=== PATIENT | female | born 2000 | race Caucasian/White ===

== ENCOUNTER 2020-02-25 04:01 | Outpatient (CLI) | payer OTHER, MEDICAID, SELFPAY ==
[2020-02-26 02:13] LABS: COVID-19 RT-PCR UVMMC Result Negative (Negative)
== END 2020-02-25 04:21 ==
PROVIDERS: PCP Nurse Practitioner Family; Visit Provider Nurse Practitioner Family
DX: Z20.828 Contact with and (suspected) exposure to other viral communicable diseases (principal); Z02.0 Encounter for examination for admission to educational institution
CPT/HCPCS: U0003

== ENCOUNTER 2020-08-09 14:46 | Outpatient (REF) | payer OTHER, MEDICAID, SELFPAY ==
--- NOTE | 2020-08-09 13:40 | PAPFT_PTH ---
PATIENT: Ciara Hercules LOC: [facility] U#:[id number] AGE/SX: 20/F ROOM: RE08/09/[address]: ALISTAIR Lopez : 2000 BED: DIS: 08/09/2020 SPEC #: [id number] RECD: 08/09/20 18:11 STATUS: MAYNOR TORIBIO #: [id number] PAPO: 08/09/20 13:[address]: Macy Meek DEPT: [facility] Cytology RECD BY: Gaviota Styles Tissues: 1 - CX/ENDOCX FOR PAP SMEARS Procedures: PAP THIN PREP/[facility] Screening Comments: [id number] (CHLAMYDIA/GC)
[2020-08-10 14:17] LABS: Chlamydia Result Negative (Negative); GC Result Negative (Negative)
== END 2020-08-09 14:47 | disposition home or self-care (01) ==
LOC: LBN 14:46
PROVIDERS: PCP Nurse Practitioner Family; Visit Provider Nurse Practitioner Family
DX: Z12.4 Encounter for screening for malignant neoplasm of cervix (principal); Z11.3 Encounter for screening for infections with a predominantly sexual mode of transmission
CPT/HCPCS: 87491; 87591; 88142

== ENCOUNTER 2020-09-13 16:07 | Outpatient (CLI) | payer MEDICAID, SELFPAY ==
[2020-09-13 12:41] LABS: Anion Gap 2.6 mmol/L (3-11); BUN 9 mg/dL (7-18); CO2 27.4 mmol/L (21.0-32.0); CREATININE 0.6 mg/dL (0.55-1.02); Calcium 9.2 mg/dL (8.5-10.1); Calculated LDL 158 mg/dL (<100); Chloride 105 mmol/L (98-107); Cholesterol 221 mg/dL (<200); Glucose 79 mg/dL (74-106); HDL Cholesterol 42 mg/dL (40-60); Potassium 3.9 mmol/L (3.5-5.1); Sodium 135 mmol/L (136-145); Triglyceride 107 mg/dL (<150)
[2020-09-13 13:16] LABS: Hemoglobin A1C 5.7 % (<5.7)
== END 2020-09-13 16:08 | disposition home or self-care (01) ==
LOC: LOS 16:08
PROVIDERS: PCP Nurse Practitioner Family; Visit Provider Nurse Practitioner Family
DX: Z13.228 Encounter for screening for other metabolic disorders (principal); Z13.220 Encounter for screening for lipoid disorders; Z13.1 Encounter for screening for diabetes mellitus; Z00.00 Encounter for general adult medical examination without abnormal findings
CPT/HCPCS: 36415; 80048; 80061; 83036

== ENCOUNTER 2021-03-02 11:00 | Outpatient (CLI) | payer OTHER, MEDICAID, SELFPAY ==
[2021-03-02 12:04] LABS: HCG Quant, Pregnancy 2812 mIU/mL (1-3)
== END 2021-03-02 11:01 | disposition home or self-care (01) ==
LOC: LBO 11:01
PROVIDERS: PCP Nurse Practitioner Family; Visit Provider Obstetrics & Gynecology
DX: O26.851 Spotting complicating pregnancy, first trimester (principal)
CPT/HCPCS: 84702

== ENCOUNTER 2021-03-04 04:36 | Outpatient (CLI) | payer OTHER, MEDICAID, SELFPAY ==
[2021-03-04 12:11] LABS: HCG Quant, Pregnancy 2074 mIU/mL (1-3)
== END 2021-03-04 04:37 | disposition home or self-care (01) ==
PROVIDERS: PCP Nurse Practitioner Family; Visit Provider Obstetrics & Gynecology
DX: O20.9 Hemorrhage in early pregnancy, unspecified
CPT/HCPCS: 36415; 86850; 86900; 86901; 84702

== ENCOUNTER 2021-03-11 01:47 | Outpatient (CLI) | payer OTHER, MEDICAID, SELFPAY ==
[2021-03-11 10:37] LABS: HCG Quant, Pregnancy 53 mIU/mL (1-3)
== END 2021-03-11 01:48 | disposition home or self-care (01) ==
LOC: LBO 01:47
PROVIDERS: PCP Nurse Practitioner Family; Visit Provider Obstetrics & Gynecology
DX: O03.9 Complete or unspecified spontaneous abortion without complication (principal)
CPT/HCPCS: 36415; 84702

== ENCOUNTER 2021-03-25 01:46 | Outpatient (CLI) | payer OTHER, MEDICAID, SELFPAY ==
[2021-03-25 13:35] LABS: HCG Quant, Pregnancy 2 mIU/mL (1-3)
== END 2021-03-25 01:47 | disposition home or self-care (01) ==
LOC: LBO 01:46
PROVIDERS: Obstetrics & Gynecology Gynecology; PCP Nurse Practitioner Family; Visit Provider Obstetrics & Gynecology
DX: O03.9 Complete or unspecified spontaneous abortion without complication (principal)
CPT/HCPCS: 36415; 84702

== ENCOUNTER 2023-01-02 01:59 | Outpatient (CLI) | payer MEDICAID, SELFPAY ==
[2023-01-02 09:29] LABS: Hemoglobin A1C 5.5 % (<5.7)
[2023-01-02 09:37] LABS: BUN 15 mg/dL (7-18); CREATININE 0.7 mg/dL (0.55-1.02); Calcium 9.6 mg/dL (8.5-10.1); Calculated LDL 167 mg/dL (<100); Chloride 101 mmol/L (98-107); Cholesterol 234 mg/dL (<200); Estimated GFR 124.55 (mL/min/1.73m2); Glucose 102 mg/dL (74-106); HDL Cholesterol 43 mg/dL (40-60); Potassium 3.7 mmol/L (3.5-5.1); Sodium 138 mmol/L (136-145); Triglyceride 123 mg/dL (<150)
== END 2023-01-02 02:00 | disposition home or self-care (01) ==
LOC: LBO 01:59
PROVIDERS: PCP Nurse Practitioner Family; Visit Provider Nurse Practitioner Family
DX: Z00.00 Encounter for general adult medical examination without abnormal findings (principal)
CPT/HCPCS: 36415; 80048; 80061; 83036; 84439; 84443

== ENCOUNTER 2023-05-15 13:23 | Outpatient (CLI) | payer MEDICAID, SELFPAY | END 2023-05-15 13:24 | disposition home or self-care (01) | LOC: LBO 13:24 | PROVIDERS: PCP Nurse Practitioner Family; Visit Provider Nurse Practitioner Family | DX: R79.89 Other specified abnormal findings of blood chemistry (principal) | CPT/HCPCS: 36415; 84443 ==

== ENCOUNTER → 2023-06-13 02:24 | Outpatient (CLI) | payer MEDICAID, SELFPAY ==
--- NOTE | 2023-06-13 07:30 | DI.CT_ITS ---
Exam(s) CT HEAD WO EXAM: CT HEAD WO CLINICAL HISTORY: headaches, multiple concussions,g43.909,F07.81. TECHNIQUE: Imaging Protocol: Axial computed tomography images with coronal and sagittal reformatted images were created and reviewed COMPARISON: No exams were available for comparison FINDINGS: There are no skull fractures. There is no fluid in the visualized paranasal sinuses. There is no evidence of intracranial hemorrhage, mass effect, or shift of midline structures. There are no extra-axial fluid collections. The ventricles are not enlarged or shifted and there is no blo od within the ventricular system nor within the basal cisterns. Orbits: There appears to be an element of bilateral proptosis IMPRESSION: No acute intracranial findings on this noninfused CT scan of the brain. Bilateral proptosis RADIATION DOSE DELIVERED: 973.07mGy.cm Total DLP DATA REPOSITORY: All CT scans at this facility are submitted to the National Radiology Data Registry (NRDR) Dose Index Registry (DIR) with the [employer] ([employer]). RADIATION OPTIMIZATION: All CT scans at this facility use at least one of these dose optimization te chniques: automated exposure control; mA and/or kV adjustment per patient size (includes targeted exa ms where dose is matched to clinical indication); or iterative reconstruction.
== END ==
PROVIDERS: PCP Nurse Practitioner Family; Visit Provider Nurse Practitioner Family
DX: G43.909 Migraine, unspecified, not intractable, without status migrainosus (principal); F07.81 Postconcussional syndrome
CPT/HCPCS: 70450

== ENCOUNTER 2023-06-13 16:36 | Outpatient (CLI) | payer MEDICAID, SELFPAY ==
[2023-06-13 15:11] LABS: Abs Immature Grans 0.03 10^3/uL (0.0-0.06); Absolute Basophil Count 0.06 10^3/uL (0.0-0.2); Absolute Eosinophil Count 0.08 10^3/uL (0.0-0.7); Absolute Lymphocyte Count 2.28 10^3/uL (1.2-3.4); Absolute Monocyte Count 0.44 10^3/uL (0.1-0.8); Absolute Neutrophil Count 5.78 10^3/uL (1.2-6.7); Basophils % 0.7; Eosinophils % 0.9; HCT 42.1 % (36.0-46.0); HGB 13.9 g/dL (11.2-15.7); Immature Grans % 0.3; Lymphocytes % 26.3; MCH 27.6 pg (27.0-33.0); MCV 84 fL (80-95); MPV 11.8 fL (8.0-11.0); Monocytes % 5.1; Neutrophils % 66.7; Platelet Count 260 10^3/uL (130-400); RBC 5.03 10^6/uL (3.93-5.22); RDW 13.1 % (11.7-14.6); RDW-SD 39.8 fL; WBC 8.67 10^3/uL (4.4-10.8)
== END 2023-06-13 16:37 | disposition home or self-care (01) ==
LOC: LBO 16:36
PROVIDERS: PCP Nurse Practitioner Family; Visit Provider Nurse Practitioner Family
DX: G43.909 Migraine, unspecified, not intractable, without status migrainosus (principal)
CPT/HCPCS: 36415; 85025

== ENCOUNTER 2023-08-29 12:39 | Outpatient (REF) | payer MEDICAID, SELFPAY ==
--- NOTE | 2023-08-29 11:30 | PAPFT_PTH ---
PATIENT: Ciara Hercules LOC: [facility] U#:[id number] AGE/SX: 23/F ROOM: RE08/29/[address]: ALISTAIR Lopez : 2000 BED: DIS: 08/29/2023 SPEC #: [id number] RECD: 08/30/23 12:24 STATUS: MAYNOR TORIBIO #: [id number] PAPO: 08/29/23 11:[address]: Macy Meek DEPT: [facility] Cytology RECD BY: Nia Pelaez Tissues: 1 - CX/ENDOCX FOR PAP SMEARS Procedures: PAP THIN PREP/[facility] Screening Comments: [id number]
== END 2023-08-29 12:40 | disposition home or self-care (01) ==
LOC: LBN 12:39
PROVIDERS: PCP Nurse Practitioner Family; Visit Provider Nurse Practitioner Family
DX: Z00.00 Encounter for general adult medical examination without abnormal findings (principal); F33.9 Major depressive disorder, recurrent, unspecified; G43.009 Migraine without aura, not intractable, without status migrainosus; R51.9 Headache, unspecified; G89.29 Other chronic pain; E66.01 Morbid (severe) obesity due to excess calories
CPT/HCPCS: 88142